=== PATIENT | male | born 1950 | race Asian ===

== ENCOUNTER 2022-01-21 12:00 | Inpatient (IN) | payer OTHER ==
[2022-01-21 12:16] VITALS: BMI 23.3
[2022-01-21 13:55] LABS: PH,URINE 6.5 (5.0-8.0); URINE APPEARANCE CLEAR; URINE BILIRUBIN NEGATIVE (NEGATIVE); URINE COLOR YELLOW; URINE GLUCOSE (UA) NEGATIVE (NEGATIVE); URINE KETONE NEGATIVE (NEGATIVE); URINE LEUK ESTERASE NEGATIVE (NEGATIVE); URINE NITRITE NEGATIVE (NEGATIVE); URINE PROTEIN NEGATIVE (NEGATIVE); URINE UROBILINOGEN 0.2 mg/dL (0.2-1.0)
[2022-01-21 13:56] LABS: BASO % 0.4 % (0-2.0); EOS % 0.1 % (0-4.5); HEMATOCRIT 45.2 % (35.4-49); HEMOGLOBIN 15.2 GM/dL (11.7-16.9); LYMPH % 16.3 % (8-40); MCH 31.3 pg (25.7-33.7); MCHC 33.7 g/dl (32.0-35.9); MEAN PLT VOLUME 8.3 fl (7.5-11.1); MONO % 15.3 % (3.8-10.2); NEUT % 67.9 % (42.8-82.8); PLATELET COUNT 174 10^3/uL (134-434); RBC 4.86 M/mm3 (4.00-5.60); WHITE BLOOD COUNT 7.6 K/mm3 (4.0-10.0)
[2022-01-21 14:15] LABS: BLOOD UREA NITROGEN 11.3 mg/dL (7-18); CALCIUM 8.9 mg/dL (8.5-10.1)
[2022-01-21 14:16] LABS: ALBUMIN 3.9 g/dl (3.4-5.0)
[2022-01-21 14:19] LABS: CREATININE 0.8 mg/dL (0.55-1.3)
[2022-01-21 14:21] LABS: BILIRUBIN,TOTAL 0.6 mg/dL (0.2-1); TOT PROT 7.8 g/dl (6.4-8.2)
[2022-01-21] MEDS ORDERED: ACETAMINOPHEN 325 MG TABLET (FP) PO ONE (20:14)
[2022-01-21] MEDS ORDERED: ACETAMINOPHEN 325 MG TABLET (FP) ONE (20:18)
[2022-01-21] MEDS: TIMOLOL 0.5% OPHTHALMIC SOL 5 ML BOTTLE OS SCH (22:28)
[2022-01-21] MEDS: BRIMONIDINE TARTRATE 0.2% OPHTHALMIC 5 ML BOTTLE OS SCH (22:28)
[2022-01-21 22:43] LABS: MAGNESIUM 2.5 mg/dL (1.8-2.4)
[2022-01-22 07:37] LABS: BASO % 0.4 % (0-2.0); HEMATOCRIT 44.5 % (35.4-49); HEMOGLOBIN 15.5 GM/dL (11.7-16.9); LYMPH % 25.7 % (8-40); MCH 32.1 pg (25.7-33.7); MCHC 34.9 g/dl (32.0-35.9); MEAN CELL VOLUME 91.9 fl (80-96); MEAN PLT VOLUME 7.8 fl (7.5-11.1); MONO % 13.8 % (3.8-10.2); NEUT % 59.1 % (42.8-82.8); PLATELET COUNT 168 10^3/uL (134-434); RBC 4.84 M/mm3 (4.00-5.60); RDW 13.1 % (11.9-15.9); WHITE BLOOD COUNT 5.9 K/mm3 (4.0-10.0)
[2022-01-22 07:58] LABS: BLOOD UREA NITROGEN 12.2 mg/dL (7-18); CALCIUM 9.1 mg/dL (8.5-10.1)
[2022-01-22 07:59] LABS: ALBUMIN 3.8 g/dl (3.4-5.0)
[2022-01-22 08:02] LABS: CREATININE 0.6 mg/dL (0.55-1.3)
[2022-01-22 08:03] LABS: BILIRUBIN,TOTAL 0.9 mg/dL (0.2-1); TOT PROT 7.6 g/dl (6.4-8.2)
[2022-01-22] MEDS: BRIMONIDINE TARTRATE 0.2% OPHTHALMIC 5 ML BOTTLE OS SCH ×2 (10:26→22:38)
[2022-01-22] MEDS: ASPIRIN COATED 81 MG TABLET.EC PO SCH (10:27)
[2022-01-22] MEDS: TIMOLOL 0.5% OPHTHALMIC SOL 5 ML BOTTLE OS SCH ×2 (10:27→22:39)
[2022-01-22] MEDS: ENOXAPARIN NA (PORCINE) 40 MG/0.4 ML DISP.SYRIN SQ SCH (10:27)
[2022-01-22 14:48] LABS: N-TERMINAL BNP 40.1 pg/ml (5-125)
[2022-01-22] MEDS ORDERED: BEBTELOVIMAB (EUA) 175 MG/2 ML VIAL IVPUSH ONE (15:00)
[2022-01-22] MEDS: guaiFENesin 200 MG/10 ML 10 ML UNIT-DOSE CUPS PO SCH ×2 (17:14→22:39)
[2022-01-22] MEDS: AZITHROMYCIN 250 MG TABLET PO SCH (17:14)
[2022-01-22] MEDS: LORATADINE 10 MG TABLET PO SCH (17:14)
[2022-01-22] MEDS: metoPROLOL SUCCINATE 25 MG TAB.SR.24H (FP) PO SCH (18:24)
[2022-01-22] MEDS: ATORVASTATIN CA 40 MG TABLET (FP) PO SCH (22:19)
[2022-01-23] MEDS: guaiFENesin 200 MG/10 ML 10 ML UNIT-DOSE CUPS PO SCH ×3 (06:50→22:00)
[2022-01-23 08:54] LABS: BASO % 0.6 % (0-2.0); EOS % 1.1 % (0-4.5); HEMATOCRIT 43.2 % (35.4-49); HEMOGLOBIN 14.8 GM/dL (11.7-16.9); MCH 31.5 pg (25.7-33.7); MCHC 34.3 g/dl (32.0-35.9); MEAN CELL VOLUME 91.9 fl (80-96); MEAN PLT VOLUME 7.6 fl (7.5-11.1); MONO % 10.7 % (3.8-10.2); NEUT % 64.6 % (42.8-82.8); PLATELET COUNT 178 10^3/uL (134-434); RDW 12.7 % (11.9-15.9)
[2022-01-23 09:18] LABS: CALCIUM 9.1 mg/dL (8.5-10.1)
[2022-01-23 09:19] LABS: BLOOD UREA NITROGEN 14.1 mg/dL (7-18)
[2022-01-23 09:22] LABS: CREATININE 0.7 mg/dL (0.55-1.3)
[2022-01-23] MEDS: ASPIRIN COATED 81 MG TABLET.EC PO SCH (09:55)
[2022-01-23] MEDS: AZITHROMYCIN 250 MG TABLET PO SCH (09:55)
[2022-01-23] MEDS: LORATADINE 10 MG TABLET PO SCH (09:55)
[2022-01-23] MEDS: metoPROLOL SUCCINATE 25 MG TAB.SR.24H (FP) PO SCH (09:55)
[2022-01-23] MEDS: ENOXAPARIN NA (PORCINE) 40 MG/0.4 ML DISP.SYRIN SQ SCH (09:56)
[2022-01-23] MEDS: BRIMONIDINE TARTRATE 0.2% OPHTHALMIC 5 ML BOTTLE OS SCH ×2 (10:02→21:26)
[2022-01-23] MEDS: TIMOLOL 0.5% OPHTHALMIC SOL 5 ML BOTTLE OS SCH ×2 (10:02→21:27)
[2022-01-23] MEDS ORDERED: REMDESIVIR 200 MG in SODIUM CHLORIDE 250 ML IVPB ONE (16:01)
[2022-01-23] MEDS: DEXAMETHASONE SOD PHOSPHATE 10 MG/1 ML VIAL IVPUSH SCH (18:23)
[2022-01-23] MEDS: ATORVASTATIN CA 40 MG TABLET (FP) PO SCH (21:26)
[2022-01-24 07:06] LABS: BASO % 0.1 % (0-2.0); HEMATOCRIT 45.5 % (35.4-49); HEMOGLOBIN 15.2 GM/dL (11.7-16.9); LYMPH % 25.9 % (8-40); MCH 31.2 pg (25.7-33.7); MCHC 33.4 g/dl (32.0-35.9); MEAN CELL VOLUME 93.2 fl (80-96); MONO % 3.6 % (3.8-10.2); NEUT % 70.4 % (42.8-82.8); PLATELET COUNT 199 10^3/uL (134-434); RBC 4.89 M/mm3 (4.00-5.60); RDW 12.6 % (11.9-15.9); WHITE BLOOD COUNT 4.1 K/mm3 (4.0-10.0)
[2022-01-24 07:34] LABS: BLOOD UREA NITROGEN 16.1 mg/dL (7-18)
[2022-01-24 07:37] LABS: CALCIUM 9.3 mg/dL (8.5-10.1); CREATININE 0.8 mg/dL (0.55-1.3)
[2022-01-24] MEDS: guaiFENesin 200 MG/10 ML 10 ML UNIT-DOSE CUPS PO SCH ×3 (07:49→22:00)
[2022-01-24] MEDS: DEXAMETHASONE SOD PHOSPHATE 10 MG/1 ML VIAL IVPUSH SCH (10:46)
[2022-01-24] MEDS: AZITHROMYCIN 250 MG TABLET PO SCH (10:46)
[2022-01-24] MEDS: ASPIRIN COATED 81 MG TABLET.EC PO SCH (10:46)
[2022-01-24] MEDS: metoPROLOL SUCCINATE 25 MG TAB.SR.24H (FP) PO SCH (10:46)
[2022-01-24] MEDS: ENOXAPARIN NA (PORCINE) 40 MG/0.4 ML DISP.SYRIN SQ SCH (10:47)
[2022-01-24] MEDS: LORATADINE 10 MG TABLET PO SCH (10:47)
[2022-01-24] MEDS: TIMOLOL 0.5% OPHTHALMIC SOL 5 ML BOTTLE OS SCH ×2 (10:49→21:27)
[2022-01-24] MEDS: BRIMONIDINE TARTRATE 0.2% OPHTHALMIC 5 ML BOTTLE OS SCH ×2 (10:49→21:27)
[2022-01-24 11:14] LABS: ALBUMIN 3.6 g/dl (3.4-5.0)
[2022-01-24 11:16] LABS: BILIRUBIN,DIRECT 0.1 mg/dL (0.0-0.2)
[2022-01-24 11:19] LABS: BILIRUBIN,TOTAL 0.5 mg/dL (0.2-1); TOT PROT 7.3 g/dl (6.4-8.2)
[2022-01-24] MEDS: REMDESIVIR 100 MG in SODIUM CHLORIDE 250 ML IVPB SCH (16:12)
[2022-01-24] MEDS: ATORVASTATIN CA 40 MG TABLET (FP) PO SCH (21:27)
[2022-01-24 21:54] LABS: BASO % 0.2 % (0-2.0); HEMATOCRIT 45.8 % (35.4-49); HEMOGLOBIN 15.7 GM/dL (11.7-16.9); LYMPH % 14.8 % (8-40); MCH 31.3 pg (25.7-33.7); MCHC 34.3 g/dl (32.0-35.9); MEAN CELL VOLUME 91.4 fl (80-96); MEAN PLT VOLUME 7.8 fl (7.5-11.1); PLATELET COUNT 223 10^3/uL (134-434); RBC 5.01 M/mm3 (4.00-5.60); RDW 12.7 % (11.9-15.9); WHITE BLOOD COUNT 7.2 K/mm3 (4.0-10.0)
[2022-01-24] MEDS ORDERED: ONDANSETRON 4 MG/2 ML VIAL ONE (23:44)
[2022-01-24] MEDS ORDERED: ONDANSETRON 4 MG/2 ML VIAL IM ONE (23:45)
[2022-01-25] MEDS: guaiFENesin 200 MG/10 ML 10 ML UNIT-DOSE CUPS PO SCH ×3 (06:16→23:02)
[2022-01-25 07:19] LABS: BASO % 0.1 % (0-2.0); HEMATOCRIT 44.5 % (35.4-49); HEMOGLOBIN 15.4 GM/dL (11.7-16.9); LYMPH % 17.3 % (8-40); MCH 31.6 pg (25.7-33.7); MCHC 34.6 g/dl (32.0-35.9); MEAN CELL VOLUME 91.2 fl (80-96); MEAN PLT VOLUME 7.7 fl (7.5-11.1); MONO % 7.9 % (3.8-10.2); NEUT % 74.7 % (42.8-82.8); PLATELET COUNT 218 10^3/uL (134-434); RBC 4.88 M/mm3 (4.00-5.60); RDW 12.5 % (11.9-15.9); WHITE BLOOD COUNT 8.5 K/mm3 (4.0-10.0)
[2022-01-25 07:39] LABS: ALBUMIN 3.6 g/dl (3.4-5.0); BLOOD UREA NITROGEN 17.8 mg/dL (7-18); CALCIUM 9.4 mg/dL (8.5-10.1)
[2022-01-25 07:42] LABS: BILIRUBIN,DIRECT 0.2 mg/dL (0.0-0.2); CREATININE 0.6 mg/dL (0.55-1.3)
[2022-01-25 07:43] LABS: TOT PROT 7.3 g/dl (6.4-8.2)
[2022-01-25 07:44] LABS: BILIRUBIN,TOTAL 0.6 mg/dL (0.2-1)
[2022-01-25] MEDS: ENOXAPARIN NA (PORCINE) 40 MG/0.4 ML DISP.SYRIN SQ SCH (10:44)
[2022-01-25] MEDS: ASPIRIN COATED 81 MG TABLET.EC PO SCH (10:44)
[2022-01-25] MEDS: metoPROLOL SUCCINATE 25 MG TAB.SR.24H (FP) PO SCH (10:44)
[2022-01-25] MEDS: LORATADINE 10 MG TABLET PO SCH (10:44)
[2022-01-25] MEDS: DEXAMETHASONE SOD PHOSPHATE 10 MG/1 ML VIAL IVPUSH SCH (10:45)
[2022-01-25] MEDS: BRIMONIDINE TARTRATE 0.2% OPHTHALMIC 5 ML BOTTLE OS SCH ×2 (10:48→21:33)
[2022-01-25] MEDS: AZITHROMYCIN 250 MG TABLET PO SCH (10:49)
[2022-01-25] MEDS: TIMOLOL 0.5% OPHTHALMIC SOL 5 ML BOTTLE OS SCH ×2 (10:49→21:33)
[2022-01-25] MEDS ORDERED: MINERAL OIL ENEMA 133 ML ENEMA RC ONE (14:15)
[2022-01-25] MEDS: POLYETHYLENE GLYCOL (HEALTHYLAX) 3350 17 GM PACKET PO SCH (14:36)
[2022-01-25] MEDS: REMDESIVIR 100 MG in SODIUM CHLORIDE 250 ML IVPB SCH (17:46)
[2022-01-25] MEDS: ATORVASTATIN CA 40 MG TABLET (FP) PO SCH (21:33)
[2022-01-26] MEDS: guaiFENesin 200 MG/10 ML 10 ML UNIT-DOSE CUPS PO SCH ×3 (06:17→22:19)
[2022-01-26 08:26] LABS: BASO % 0.1 % (0-2.0); HEMOGLOBIN 15.4 GM/dL (11.7-16.9); LYMPH % 17.6 % (8-40); MCH 31.3 pg (25.7-33.7); MCHC 34.2 g/dl (32.0-35.9); MEAN CELL VOLUME 91.6 fl (80-96); MEAN PLT VOLUME 7.7 fl (7.5-11.1); MONO % 8.4 % (3.8-10.2); NEUT % 73.9 % (42.8-82.8); PLATELET COUNT 247 10^3/uL (134-434); RBC 4.92 M/mm3 (4.00-5.60); RDW 12.6 % (11.9-15.9)
[2022-01-26 08:50] LABS: CHLORIDE 100 mmol/L (98-107); SODIUM 135 mmol/L (136-145)
[2022-01-26 09:00] LABS: ANION GAP 9 MMOL/L (8-16); BLOOD UREA NITROGEN 17.1 mg/dL (7-18); CO2 25 mmol/L (21-32); GLUCOSE,RANDOM 96 mg/dL (74-106)
[2022-01-26 09:03] LABS: CREATININE 0.6 mg/dL (0.55-1.3)
[2022-01-26 09:04] LABS: CALCIUM 9.3 mg/dL (8.5-10.1); LDH 159 U/L (87-246)
[2022-01-26 09:21] LABS: ERYTHROCYTE SEDIMENTATION RATE 13 mm/hr (0-20)
[2022-01-26] MEDS: AZITHROMYCIN 250 MG TABLET PO SCH (10:46)
[2022-01-26] MEDS: metoPROLOL SUCCINATE 25 MG TAB.SR.24H (FP) PO SCH (10:47)
[2022-01-26] MEDS: ASPIRIN COATED 81 MG TABLET.EC PO SCH (10:47)
[2022-01-26] MEDS: LORATADINE 10 MG TABLET PO SCH (10:47)
[2022-01-26] MEDS: BRIMONIDINE TARTRATE 0.2% OPHTHALMIC 5 ML BOTTLE OS SCH ×2 (10:48→21:50)
[2022-01-26] MEDS: POLYETHYLENE GLYCOL (HEALTHYLAX) 3350 17 GM PACKET PO SCH (10:48)
[2022-01-26] MEDS: ENOXAPARIN NA (PORCINE) 40 MG/0.4 ML DISP.SYRIN SQ SCH (10:48)
[2022-01-26] MEDS: TIMOLOL 0.5% OPHTHALMIC SOL 5 ML BOTTLE OS SCH ×2 (10:49→21:50)
[2022-01-26] MEDS: DEXAMETHASONE SOD PHOSPHATE 10 MG/1 ML VIAL IVPUSH SCH (11:31)
[2022-01-26] MEDS: REMDESIVIR 100 MG in SODIUM CHLORIDE 250 ML IVPB SCH (17:21)
[2022-01-26] MEDS: ATORVASTATIN CA 40 MG TABLET (FP) PO SCH (21:50)
[2022-01-27] MEDS: guaiFENesin 200 MG/10 ML 10 ML UNIT-DOSE CUPS PO SCH ×2 (06:23→15:38)
[2022-01-27] MEDS: DEXAMETHASONE SOD PHOSPHATE 10 MG/1 ML VIAL IVPUSH SCH (09:43)
[2022-01-27] MEDS: AZITHROMYCIN 250 MG TABLET PO SCH (09:43)
[2022-01-27] MEDS: metoPROLOL SUCCINATE 25 MG TAB.SR.24H (FP) PO SCH (09:43)
[2022-01-27] MEDS: LORATADINE 10 MG TABLET PO SCH (09:43)
[2022-01-27] MEDS: ASPIRIN COATED 81 MG TABLET.EC PO SCH (09:43)
[2022-01-27] MEDS: POLYETHYLENE GLYCOL (HEALTHYLAX) 3350 17 GM PACKET PO SCH (09:44)
[2022-01-27] MEDS: ENOXAPARIN NA (PORCINE) 40 MG/0.4 ML DISP.SYRIN SQ SCH (09:44)
[2022-01-27] MEDS: TIMOLOL 0.5% OPHTHALMIC SOL 5 ML BOTTLE OS SCH (09:44)
[2022-01-27] MEDS: BRIMONIDINE TARTRATE 0.2% OPHTHALMIC 5 ML BOTTLE OS SCH (09:44)
[2022-01-27] MEDS: REMDESIVIR 100 MG in SODIUM CHLORIDE 250 ML IVPB SCH (15:38)
[2022-01-27 18:11] VITALS: BP 150/108; PULSE 96; TEMP 98.6
== END 2022-01-27 20:11 | disposition home or self-care (01) | DRG 177 ==
LOC: JER 12:00 → JERBED 13:01 → J4W 20:40 → OBSVTOIN 01-26 09:47
PROVIDERS: ADMIT Internal Medicine; ATTEND Internal Medicine
PROC: XW033E5 Introduction of Remdesivir Anti-infective into Peripheral Vein, Percutaneous Approach, New Technology Group 5 (ICD-10-PCS; principal; 2022-01-26)
PROC: XW033H6 Introduction of Other New Technology Monoclonal Antibody into Peripheral Vein, Percutaneous Approach, New Technology Group 6 (ICD-10-PCS; 2022-01-26)
DX: U07.1 COVID-19 (principal); J12.82 Pneumonia due to coronavirus disease 2019; I11.9 Hypertensive heart disease without heart failure; I65.21 Occlusion and stenosis of right carotid artery; E78.5 Hyperlipidemia, unspecified; E78.00 Pure hypercholesterolemia, unspecified; N40.0 Benign prostatic hyperplasia without lower urinary tract symptoms; H40.9 Unspecified glaucoma; R55 Syncope and collapse; F41.9 Anxiety disorder, unspecified
CPT/HCPCS: 0241U-QW; 36415; 70450-TC; 70498-TC; 71045-TC-FY; 72125-TC; 80048; 80053; 80061; 80076; 81003; 82728; 83036; 83615; 83735; 83880; 84443; 84484; 85025; 85379; 85651; 86140; 87086; 87807; 93005; 93010; 93880-TC; 94761; 97116-GP; 97161-GP; 99285-25; C9399; C9803-CS; G0378; J1100; Q0222; Q9967; U0003; U0005

== ENCOUNTER 2022-03-09 04:29 | Inpatient (IN) | payer OTHER ==
[2022-03-09 05:36] LABS: VENOUS BASE EXCESS 3.2 mmol/L (-2-2); VENOUS O2 SATURATION 95.8 % (70-80); VENOUS PCO2 47.8 mmHg (38-52); VENOUS PH 7.4 (7.310-7.410)
[2022-03-09 05:52] LABS: BASO % 1.1 % (0-2.0); EOS % 1.2 % (0-4.5); HEMATOCRIT 43.8 % (35.4-49); HEMOGLOBIN 14.8 GM/dL (11.7-16.9); LYMPH % 15.3 % (8-40); MCH 31.4 pg (25.7-33.7); MCHC 33.8 g/dl (32.0-35.9); MEAN CELL VOLUME 92.8 fl (80-96); MEAN PLT VOLUME 8.1 fl (7.5-11.1); MONO % 7.9 % (3.8-10.2); NEUT % 74.5 % (42.8-82.8); PLATELET COUNT 176 10^3/uL (134-434); RBC 4.72 M/mm3 (4.00-5.60); RDW 13.3 % (11.9-15.9); WHITE BLOOD COUNT 8.9 K/mm3 (4.0-10.0)
[2022-03-09 06:03] LABS: MAGNESIUM 2.3 mg/dL (1.8-2.4)
[2022-03-09 06:04] LABS: CALCIUM 8.9 mg/dL (8.5-10.1)
[2022-03-09 06:05] LABS: ALBUMIN 3.8 g/dl (3.4-5.0); BLOOD UREA NITROGEN 9.2 mg/dL (7-18)
[2022-03-09 06:08] LABS: CREATININE 0.6 mg/dL (0.55-1.3)
[2022-03-09 06:09] LABS: BILIRUBIN,TOTAL 1.1 mg/dL (0.2-1); TOT PROT 7.2 g/dl (6.4-8.2)
[2022-03-09 06:16] LABS: INR 1.09 (0.83-1.09); PROTHROMBIN TIME (PATIENT) 12.5 SEC (9.7-13.0)
[2022-03-09 10:56] LABS: URINE APPEARANCE CLEAR; URINE BILIRUBIN NEGATIVE (NEGATIVE); URINE COLOR YELLOW; URINE GLUCOSE (UA) NEGATIVE (NEGATIVE); URINE KETONE NEGATIVE (NEGATIVE); URINE LEUK ESTERASE NEGATIVE (NEGATIVE); URINE NITRITE NEGATIVE (NEGATIVE); URINE PROTEIN NEGATIVE (NEGATIVE); URINE UROBILINOGEN 0.2 mg/dL (0.2-1.0)
[2022-03-09] MEDS ORDERED: ASPIRIN 81 MG CHEWABLE TABLETS PO ONE (11:52)
[2022-03-09] MEDS ORDERED: CLOPIDOGREL BISULFATE 75 MG TABLET (FP) PO ONE (11:52)
[2022-03-09] MEDS ORDERED: ATORVASTATIN CA 40 MG TABLET (FP) PO ONE (11:52)
[2022-03-09] MEDS ORDERED: ASPIRIN 81 MG CHEWABLE TABLETS ONE (12:41)
[2022-03-09] MEDS ORDERED: CLOPIDOGREL BISULFATE 75 MG TABLET (FP) ONE (12:41)
[2022-03-09] MEDS ORDERED: ATORVASTATIN CA 40 MG TABLET (FP) ONE (12:41)
[2022-03-09] MEDS: CLOPIDOGREL BISULFATE 75 MG TABLET (FP) PO SCH (21:14)
[2022-03-09] MEDS: FAMOTIDINE 20 MG TABLET PO SCH (21:15)
[2022-03-09] MEDS: ASPIRIN COATED 81 MG TABLET.EC PO SCH (21:15)
[2022-03-09] MEDS: metoPROLOL SUCCINATE 25 MG TAB.SR.24H (FP) PO SCH (21:16)
[2022-03-09] MEDS: ENOXAPARIN NA (PORCINE) 30 MG/0.3 ML DISP.SYRIN SQ SCH (21:16)
[2022-03-09] MEDS: LATANOPROST 0.005% OPHTH SOLN 2.5ML BOTTLE OD SCH (21:16)
[2022-03-09] MEDS: ATORVASTATIN CA 40 MG TABLET (FP) PO SCH (21:18)
[2022-03-09 23:05] VITALS: BMI 23.3
[2022-03-09] MEDS: BRIMONIDINE TARTRATE 0.2% OPHTHALMIC 5 ML BOTTLE OS SCH (23:17)
[2022-03-10 08:41] LABS: BASO % 0.5 % (0-2.0); EOS % 0.9 % (0-4.5); HEMATOCRIT 44.9 % (35.4-49); HEMOGLOBIN 15.6 GM/dL (11.7-16.9); LYMPH % 24.7 % (8-40); MCH 31.7 pg (25.7-33.7); MCHC 34.7 g/dl (32.0-35.9); MEAN CELL VOLUME 91.3 fl (80-96); MEAN PLT VOLUME 7.7 fl (7.5-11.1); MONO % 11.6 % (3.8-10.2); NEUT % 62.3 % (42.8-82.8); PLATELET COUNT 181 10^3/uL (134-434); RBC 4.91 M/mm3 (4.00-5.60); RDW 13.5 % (11.9-15.9); WHITE BLOOD COUNT 7.1 K/mm3 (4.0-10.0)
[2022-03-10 09:01] LABS: BLOOD UREA NITROGEN 11.3 mg/dL (7-18); CALCIUM 9.1 mg/dL (8.5-10.1)
[2022-03-10 09:04] LABS: CREATININE 0.7 mg/dL (0.55-1.3)
[2022-03-10 09:27] LABS: ERYTHROCYTE SEDIMENTATION RATE 3 mm/hr (0-20)
[2022-03-10] MEDS: FINASTERIDE 5 MG TABLET (FP) PO SCH (10:18)
[2022-03-10] MEDS: metoPROLOL SUCCINATE 25 MG TAB.SR.24H (FP) PO SCH (10:18)
[2022-03-10] MEDS: ASPIRIN COATED 81 MG TABLET.EC PO SCH (10:18)
[2022-03-10] MEDS: ENOXAPARIN NA (PORCINE) 30 MG/0.3 ML DISP.SYRIN SQ SCH (10:19)
[2022-03-10] MEDS: LORATADINE 10 MG TABLET PO SCH (10:19)
[2022-03-10] MEDS: FAMOTIDINE 20 MG TABLET PO SCH (10:20)
[2022-03-10] MEDS: CLOPIDOGREL BISULFATE 75 MG TABLET (FP) PO SCH (10:20)
[2022-03-10] MEDS: TIMOLOL 0.5% OPHTHALMIC SOL 5 ML BOTTLE OS SCH (10:24)
[2022-03-10] MEDS: BRIMONIDINE TARTRATE 0.2% OPHTHALMIC 5 ML BOTTLE OS SCH ×2 (10:25→21:08)
[2022-03-10] MEDS: LATANOPROST 0.005% OPHTH SOLN 2.5ML BOTTLE OD SCH (21:08)
[2022-03-10] MEDS: ATORVASTATIN CA 40 MG TABLET (FP) PO SCH (21:08)
[2022-03-11 07:39] LABS: BASO % 0.4 % (0-2.0); EOS % 1.1 % (0-4.5); HEMOGLOBIN 14.8 GM/dL (11.7-16.9); LYMPH % 20.8 % (8-40); MCH 31.5 pg (25.7-33.7); MCHC 34.3 g/dl (32.0-35.9); MEAN CELL VOLUME 91.9 fl (80-96); MEAN PLT VOLUME 7.7 fl (7.5-11.1); MONO % 8.8 % (3.8-10.2); NEUT % 68.9 % (42.8-82.8); PLATELET COUNT 185 10^3/uL (134-434); RBC 4.68 M/mm3 (4.00-5.60); RDW 13.6 % (11.9-15.9); WHITE BLOOD COUNT 5.9 K/mm3 (4.0-10.0)
[2022-03-11 07:57] LABS: CALCIUM 8.9 mg/dL (8.5-10.1)
[2022-03-11 07:58] LABS: BLOOD UREA NITROGEN 11.7 mg/dL (7-18)
[2022-03-11 08:01] LABS: CREATININE 0.6 mg/dL (0.55-1.3)
[2022-03-11] MEDS: BRIMONIDINE TARTRATE 0.2% OPHTHALMIC 5 ML BOTTLE OS SCH ×3 (10:24→22:05)
[2022-03-11] MEDS: TIMOLOL 0.5% OPHTHALMIC SOL 5 ML BOTTLE OS SCH ×2 (10:25→10:32)
[2022-03-11] MEDS: ASPIRIN COATED 81 MG TABLET.EC PO SCH (10:30)
[2022-03-11] MEDS: CLOPIDOGREL BISULFATE 75 MG TABLET (FP) PO SCH (10:30)
[2022-03-11] MEDS: FINASTERIDE 5 MG TABLET (FP) PO SCH (10:30)
[2022-03-11] MEDS: LORATADINE 10 MG TABLET PO SCH (10:30)
[2022-03-11] MEDS: ENOXAPARIN NA (PORCINE) 30 MG/0.3 ML DISP.SYRIN SQ SCH (10:30)
[2022-03-11] MEDS: metoPROLOL SUCCINATE 25 MG TAB.SR.24H (FP) PO SCH (10:31)
[2022-03-11] MEDS: FAMOTIDINE 20 MG TABLET PO SCH (10:31)
[2022-03-11] MEDS: ATORVASTATIN CA 40 MG TABLET (FP) PO SCH (21:57)
[2022-03-11] MEDS: METOCLOPRAMIDE HCL 10 MG TABLET (FP) PO SCH (21:57)
[2022-03-11] MEDS: LATANOPROST 0.005% OPHTH SOLN 2.5ML BOTTLE OD SCH (22:05)
[2022-03-12] MEDS: METOCLOPRAMIDE HCL 10 MG TABLET (FP) PO SCH ×3 (06:11→16:35)
[2022-03-12] MEDS: ENOXAPARIN NA (PORCINE) 30 MG/0.3 ML DISP.SYRIN SQ SCH (10:15)
[2022-03-12] MEDS: metoPROLOL SUCCINATE 25 MG TAB.SR.24H (FP) PO SCH (10:16)
[2022-03-12] MEDS: CLOPIDOGREL BISULFATE 75 MG TABLET (FP) PO SCH (10:16)
[2022-03-12] MEDS: FAMOTIDINE 20 MG TABLET PO SCH (10:17)
[2022-03-12] MEDS: FINASTERIDE 5 MG TABLET (FP) PO SCH (10:18)
[2022-03-12] MEDS: ASPIRIN COATED 81 MG TABLET.EC PO SCH (10:18)
[2022-03-12] MEDS: TIMOLOL 0.5% OPHTHALMIC SOL 5 ML BOTTLE OS SCH (10:19)
[2022-03-12] MEDS: LORATADINE 10 MG TABLET PO SCH (10:19)
[2022-03-12] MEDS: BRIMONIDINE TARTRATE 0.2% OPHTHALMIC 5 ML BOTTLE OS SCH ×2 (10:19→21:28)
[2022-03-12] MEDS: LISINOPRIL 5 MG TABLET PO SCH (14:32)
[2022-03-12] MEDS: ATORVASTATIN CA 40 MG TABLET (FP) PO SCH (21:25)
[2022-03-12] MEDS: LATANOPROST 0.005% OPHTH SOLN 2.5ML BOTTLE OD SCH (21:27)
[2022-03-13] MEDS: METOCLOPRAMIDE HCL 10 MG TABLET (FP) PO SCH ×3 (06:22→16:35)
[2022-03-13 06:38] LABS: BASO % 0.5 % (0-2.0); EOS % 1.5 % (0-4.5); HEMATOCRIT 42.7 % (35.4-49); HEMOGLOBIN 14.7 GM/dL (11.7-16.9); LYMPH % 22.4 % (8-40); MCH 31.6 pg (25.7-33.7); MCHC 34.4 g/dl (32.0-35.9); MEAN CELL VOLUME 91.9 fl (80-96); MEAN PLT VOLUME 7.8 fl (7.5-11.1); MONO % 9.4 % (3.8-10.2); NEUT % 66.2 % (42.8-82.8); PLATELET COUNT 179 10^3/uL (134-434); RBC 4.65 M/mm3 (4.00-5.60); RDW 13.4 % (11.9-15.9)
[2022-03-13 06:52] LABS: CREATININE 0.7 mg/dL (0.55-1.3)
[2022-03-13] MEDS ORDERED: REGADENOSON 0.4 MG/5 ML PRE-FILLED SYRINGE IVPUSH ONE ×2 (09:30→11:10)
[2022-03-13] MEDS: metoPROLOL SUCCINATE 25 MG TAB.SR.24H (FP) PO SCH (12:53)
[2022-03-13] MEDS: ENOXAPARIN NA (PORCINE) 30 MG/0.3 ML DISP.SYRIN SQ SCH (12:53)
[2022-03-13] MEDS: ASPIRIN COATED 81 MG TABLET.EC PO SCH (12:53)
[2022-03-13] MEDS: FINASTERIDE 5 MG TABLET (FP) PO SCH (12:53)
[2022-03-13] MEDS: FAMOTIDINE 20 MG TABLET PO SCH (12:54)
[2022-03-13] MEDS: TIMOLOL 0.5% OPHTHALMIC SOL 5 ML BOTTLE OS SCH (12:54)
[2022-03-13] MEDS: LORATADINE 10 MG TABLET PO SCH (12:54)
[2022-03-13] MEDS: CLOPIDOGREL BISULFATE 75 MG TABLET (FP) PO SCH (12:54)
[2022-03-13] MEDS: BRIMONIDINE TARTRATE 0.2% OPHTHALMIC 5 ML BOTTLE OS SCH (12:54)
[2022-03-13] MEDS: LISINOPRIL 5 MG TABLET PO SCH (12:54)
[2022-03-13 19:13] VITALS: BP 123/88; PULSE 83; TEMP 98.6
== END 2022-03-13 20:38 | disposition home or self-care (01) | DRG 312 ==
LOC: JER 04:29 → JERBED 06:26 → J4S 16:38
PROVIDERS: ADMIT Internal Medicine; ATTEND Internal Medicine
DX: R55 Syncope and collapse (principal); U07.1 COVID-19; H40.9 Unspecified glaucoma; N40.0 Benign prostatic hyperplasia without lower urinary tract symptoms; I10 Essential (primary) hypertension; E78.5 Hyperlipidemia, unspecified; I65.21 Occlusion and stenosis of right carotid artery; F41.9 Anxiety disorder, unspecified; R73.03 Prediabetes; R06.6 Hiccough
CPT/HCPCS: 0241U-QW; 36415; 70450-TC; 71045-TC-FY; 72125-TC; 78452-TC; 80048; 80053; 80061; 81003; 82803; 82962; 83615; 83735; 84100; 84484; 85025; 85379; 85610; 85651; 86140; 87086; 93005; 93010; 93017; 93306-TC; 93970-TC; 99285-25; A9502; C9803-CS; J2785; U0003; U0005